=== PATIENT | female | born 1995 | race African-American/Black ===

== ENCOUNTER 2021-09-05 19:06 | Emergency (ER) | payer OTHER ==
[~2021-09-05] VITALS: Ht 160 cm; Wt 79.4 kg
[2021-09-05 19:25] VITALS: BP 137/78
== END 2021-09-05 19:45 | disposition home or self-care (01) ==
LOC: ER 19:06
DX: R51.9 Headache, unspecified (principal); Z88.1 Allergy status to other antibiotic agents; V49.3XXA Car occupant (driver) (passenger) injured in unspecified nontraffic accident, initial encounter; Y93.89 Activity, other specified; Y92.89 Other specified places as the place of occurrence of the external cause; Y99.8 Other external cause status